=== PATIENT | male | born 1995 | race Caucasian/White ===

== ENCOUNTER 2021-11-16 10:00 | Outpatient (RCR) | payer OTHER, SELFPAY | END 2022-02-15 13:05 | disposition home or self-care (01) | PROVIDERS: Visit Provider Student in an Organized Health Care Education/Training Program | DX: M54.40 Lumbago with sciatica, unspecified side (principal); Z51.89 Encounter for other specified aftercare | CPT/HCPCS: 97110; 97161 ==

== ENCOUNTER 2022-04-29 17:36 | Emergency (ER) | payer OTHER, SELFPAY ==
[2022-04-29 17:48] VITALS: BP 145/86; PULSE 68; RESP 16; TEMP 36.6; O2SAT 98; BMI 34.9
--- NOTE | 2022-04-29 17:55 | CRLHL7_ITS ---
For Patients: As a result of the Cures Act, medical imaging exams and procedure reports are released immediately into your electronic medical record. You may view this report before your referring provider. If you have questions, please contact your health care provider. INDICATION: Pain and swelling after injury. TECHNIQUE: Three views right ankle. IMPRESSION: Some lateral periarticular soft tissue swelling. No fracture. No effusion. Anatomic alignment without degenerative change. Dictated by Roni Velasco MD @ 04/29/2022 6:29:59 PM (Electronically Signed)
--- NOTE | 2022-04-29 18:01 | ED.LOWEXIN ---
HPI - Extremity Injury (Lower) General Chief Complaint: Extremity Pain/Injury, Lower Stated Complaint: Ankle Injury Time Seen by Provider: 04/29/22 17:40 History of Present Illness HPI Narrative: This 26-year-old male comes in with an injury to his right ankle. He slipped on some ice and has pain on the lateral aspect of his right ankle. He did not have any other injury or loss of consciousness. He states that he did initially ambulate on this but after sitting in a car for bit he had too much pain when attempting to ambulate again. Related Data Home Medications Medication Instructions Recorded Confirmed multivitamin (Daily Multi-Vitamin 1 tab PO DAILY 04/29/22 04/29/22 tablet) Allergies Allergy/AdvReac Type Severity Reaction Status Date / Time Penicillins Allergy Mild Hives Verified 01/28/22 13:24 Review of Systems Status of ROS: Reports: 10 or more systems reviewed and unremarkable except as noted in History and below Narrative: Constitutional: No fevers, no weight gain or loss. Eyes: No discharge. No vision changes. HENT: No congestion, no sore throat, no ear pain. Cardiovascular: No chest pain, no palpitations. Respiratory: No shortness of breath, no wheezes, no cough. Gastrointestinal: No abdominal pain, no vomiting, no diarrhea. Genitourinary: No dysuria, no hematuria. Musculoskeletal: Right ankle injury with associated decreased range of motion. Skin: No rashes, no pruritis. Neurological: No dizziness, weakness, sensory change, speech change. Endo/Heme/Allergies: No bruising or bleeding. No polydipsia. Pysch: no suicidality, no anxiety, no insomnia. All other systems reviewed and are negative. [facility] Social History Smoking Status: Never smoker How often do you have a drink containing alcohol: never AUDIT-C Alcohol total score: 0 Non-prescribed substance use: denies use Exam Narrative: Exam Narrative: Constitutional: Well-developed, well-nourished, no acute distress. HEENT: Normocephalic, atraumatic. Neck: Normal range of motion. Nontender. Supple. Heart: Intact distal pulses. Lungs: No chest discomfort. No wheezes, rhonchi, or rales. Abdomen: Nontender. Back: Normal range of motion. Extremities: Right ankle has swelling over the lateral malleolus. There is no joint instability or effusion. Skin: Intact. No rash. Warm. No erythema or pallor. Neurologic: No altered sensation. No weakness. Alert and oriented. Psychiatric: No suicidality. No anxiety or depression. No insomnia. Nursing notes and vitals signs are reviewed. Const: Vital Signs, click to edit/add: Vital Signs - 24 hr 04/29/22 17:48 Temperature 97.8 F Pulse Rate [Pulse Oximeter] 68 Respiratory Rate 16 Blood Pressure [Ri ght Upper Arm] 145/86 H Pulse Oximetry 98 Oxygen Delivery Me thod Room Air Course Vital Signs Vital signs: Initial Vital Signs Temperature 97.8 F 04/29/22 17:48 Temperature Source Temporal Artery Scan 04/29/22 17:48 Pulse Rate 68 04/29/22 17:48 Respiratory Rate 16 04/29/22 17:48 Blood Pressure 145/86 H 04/29/22 17:48 Blood Pressure Mean 105 04/29/22 17:48 Blood Pressure Position Supine 04/29/22 17:48 Pulse Oximetry 98 04/29/22 17:48 Oxygen Delivery Method 04/29/22 17:48 Vital Signs Temperature 97.8 F 04/29/22 17:48 Pulse Rate 68 04/29/22 17:48 Respiratory Rate 16 04/29/22 17:48 Blood Pressure 145/86 H 04/29/22 17:48 Pulse Oximetry 98 04/29/22 17:48 Oxygen Delivery Method 04/29/22 17:48 Temperature 97.8 F 04/29/22 17:48 Pulse Rate 68 04/29/22 17:48 Respiratory Rate 16 04/29/22 17:48 Blood Pressure 145/86 H 04/29/22 17:48 Pulse Oximetry 98 04/29/22 17:48 Oxygen Delivery Method 04/29/22 17:48 MDM - Extremity Injury (Lower) MDM Narrative Medical decision making narrative: This patient comes in with an injury to his right ankle. X-ray images show no evidence of fracture. There is some swelling over the lateral malleolus. I did encourage early activity as tolerated. I recommended [id number] medicines as needed and directed for pain. I did also offer crutches but the patient declined this stating that he feels like he will be able to ambulate sufficiently without them. Imaging Data XR R Ankle: Radiologist's impression: Some lateral periarticular soft tissue swelling. No fracture. No effusion. Anatomic alignment without degenerative change. Discharge Plan Discharge Clinical Impression: Ankle sprain and strain Patient Disposition: Home, Self-Care Condition: Stable Additional Instructions: Increase activity as tolerated. Use [id number] medicines as needed and directed. Follow up with MD or return if worsening. Prescriptions: No Action multivitamin [Daily Multi-Vitamin] Tablet 1 tab PO DAILY Follow Up/Referrals: Provider,Not a Local [Primary Care Provider] - Stand Alone Forms: [email or web address] Info Instructions
== END 2022-04-29 19:03 | disposition home or self-care (01) ==
PROVIDERS: Emergency Provider Emergency Medicine Emergency Medical Services
DX: S93.401A Sprain of unspecified ligament of right ankle, initial encounter (principal); W00.0XXA Fall on same level due to ice and snow, initial encounter
CPT/HCPCS: 73610; 99283; 99284

== ENCOUNTER 2024-11-10 11:15 | Outpatient (RCR) | payer BC, SELFPAY | END 2024-12-08 14:38 | disposition home or self-care (01) | PROVIDERS: Visit Provider Orthopaedic Surgery | DX: M67.462 Ganglion, left knee (principal); R93.7 Abnormal findings on diagnostic imaging of other parts of musculoskeletal system; M25.462 Effusion, left knee; Z51.89 Encounter for other specified aftercare | CPT/HCPCS: 97110; 97161 ==